=== PATIENT | male | born 1975 ===

== ENCOUNTER 2016-07-04 16:12 | Emergency (ER) | payer BC ==
--- NOTE | 2016-07-04 16:50 | EDM.PDOC ---
ED HPI Trauma - General Chief Complaint: Lower Extremity Injury/Pain Stated Complaint: PAIN/SWOLLEN RT FOOT Time Seen by Provider: 07/04/16 16:14 Source: Reports: Patient History Limitations: Reports: No limitations - History of Present Illness INITIAL COMMENTS - FREE TEXT/NARRATIVE: History of present illness: [] Patient peeled off some skin at the bottom of his foot 3 days ago and now it is swollen and tender and the redness is spreading up his leg. Patient denies having any fevers or chills and is a diabetic. Review of systems: As per history of present illness and below otherwise all systems reviewed and negative. Past medical history: As per history of present illness and as reviewed below otherwise noncontributory. Surgical history: As per history of present illness and as reviewed below otherwise noncontributory. Social history: No reported history of drug or alcohol abuse. Family history: As per history of present illness and as reviewed below otherwise noncontributory. Physical exam: General: Well developed, well nourished in NAD HEENT: Atraumatic, normocephalic, pupils reactive, negative for conjunctival pallor or scleral icterus, mucous membranes moist, throat clear, neck supple, nontender, trachea midline. Lungs: Clear to auscultation, breath sounds equal bilaterally, chest nontender. Heart: S1S2, regular, negative for clicks, rubs, or JVD. Abdomen: Soft, nondistended, nontender. Negative for masses or hepatosplenomegaly. Negative for costovertebral tenderness. Pelvis: Stable nontender. Genitourinary: Deferred. Rectal: Deferred. Extremities: Atraumatic, negative for cords or calf pain. Neurovascular unremarkable. Neuro: Awake, alert, oriented. Cranial nerves II through XII unremarkable. Cerebellum unremarkable. Motor and sensory unremarkable throughout. Exam nonfocal. Diagnostics: [] Labs, blood cultures, x-rays Therapeutics: [] IV fluids and try ceftriaxone 1 g given Impression: [] Cellulitis with lymphangitis of the right foot a diabetic. Plan: [] Patient is to start antibiotics by mouth, check sugars regularly. return to ER if symptoms worsen followup Dr. Jensen early next week Definitive disposition and diagnosis as appropriate pending reevaluation and review of above. Allergies/ADRs: Allergies No Known Allergies Allergy (Verified 07/04/16 16:44) Home Medications: Ambulatory Orders metFORMIN [Glucophage XR] 0 tab PO BID 06/29/14 [Confirmed 07/04/16] Empagliflozin/Linagliptin [Glyxambi 10 mg-5 mg Tablet] 0 tab PO DAILY 07/04/16 [ Confirmed 07/04/16] Sulfamethoxazole/Trimethoprim [Bactrim Ds Tablet] 1 each PO BID #20 tablet 07/04 Testosterone Cypionate 0 mg IM ASDIRECTED 07/04/16 [Confirmed 07/04/16] traMADol HCl [Tramadol HCl] 50 mg PO Q6H PRN #10 tablet 07/04/16 Social & Family History - Tobacco Use Smoking Status *Q: Former Smoker Years of Tobacco use: 12 Used Tobacco, but Quit: Yes Month Tobacco Last Used: 2 - Alcohol Use Days Per Week of Alcohol Use: 2 Number of Drinks Per Day: 1 Total Drinks Per Week: 2 - Recreational Drug Use Recreational Drug Use: Yes Drug Use in Last 12 Months: No Recreational Drug Type: Reports: Cocaine Review of Systems - Review of Systems Review Of Systems: See Below (See history of present illness) Trauma Exam - Physical Exam Exam: See Below (See history of present illness) Course - Vital Signs Last Recorded V/S: Last Vital Signs Temp 36.7 C 07/04/16 16:46 Pulse 95 07/04/16 16:46 Resp 18 07/04/16 16:46 BP 147/88 H 07/04/16 16:46 Pulse Ox 98 07/04/16 16:46 - Orders/Labs/Meds Orders: Active Orders 24 hr Category Date Time Status Foot 2V Rt [CR] Stat Exams 07/04/16 16:53 Taken CULTURE BLOOD [BC] Stat Lab 07/04/16 17:10 Received CULTURE BLOOD [BC] Stat Lab 07/04/16 17:14 Received Sodium Chloride 0.9% [Normal Saline] 1,000 ml Med 07/04/16 17:17 Active IV .Bolus Sodium Chloride 0.9% [Saline Flush] Med 07/04/16 16:52 Active 10 ml FLUSH ASDIRECTED PRN Sodium Chloride 0.9% [Saline Flush] Med 07/04/16 16:52 Active 2.5 ml FLUSH ASDIRECTED PRN Blood Culture x2 Reflex Set [OM.PC] Stat Oth 07/04/16 16:52 Ordered Peripheral IV Insertion Adult [OM.PC] Stat Oth 07/04/16 16:52 Ordered Medication Orders Sodium Chloride (Normal Saline) 1,000 mls @ 999 mls/hr IV .Bolus ONE Stop: 07/04/16 18:17 Last Admin: 07/04/16 17:38 Dose: 999 mls/hr Sodium Chloride (Saline Flush) 10 ml FLUSH ASDIRECTED PRN PRN Reason: Keep Vein Open Last Admin: 07/04/16 17:38 Dose: 10 ml Sodium Chloride (Saline Flush) 2.5 ml FLUSH ASDIRECTED PRN PRN Reason: Keep Vein Open Labs: Laboratory Tests 07/04/16 07/04/16 07/04/16 Range/Units 17:10 17:10 17:10 WBC 12.20 H (4.0-11.0) K/uL RBC 4.65 (4.50-5.90) M/uL Hgb 13.9 (13.0-17.0) g/dL Hct 41.1 (38.0-50.0) % MCV 88.4 (80.0-98.0) fL MCH 29.9 (27.0-32.0) pg MCHC 33.8 (31.0-37.0) g/dL RDW Std Deviation 40.6 (28.0-62.0) fl RDW Coeff of Sage 13 (11.0-15.0) % Plt Count 235 (150-400) K/uL MPV 10.60 (7.40-12.00) fL Neut % (Auto) 81.3 H (48.0-80.0) % Lymph % (Auto) 7.6 L (16.0-40.0) % [place] % (Auto) 10.7 (0.0-15.0) % Eos % (Auto) 0.2 (0.0-7.0) % Baso % (Auto) 0.2 (0.0-1.5) % Neut # 9.9 H (1.4-5.7) K/uL Lymph # 0.9 (0.6-2.4) K/uL [place] # 1.3 H (0.0-0.8) K/uL Eos # 0.0 (0.0-0.7) K/uL Baso # 0.0 (0.0-0.1) K/uL Nucleated RBC % 0.0 /100WBC Nucleated RBCs # 0 K/uL Lactate 1.4 (0.20-2.00) mmol/L Sodium 136 (136-146) mmol/L Potassium 4.1 (3.5-5.1) mmol/L Chloride 101 (98-110) mmol/L Carbon Dioxide 25 (21-31) mmol/L BUN 13 (6.0-23.0) mg/dL Creatinine 1.0 (0.6-1.5) mg/dL Est Cr Clr Drug Dosing 103.54 mL/min Estimated GFR (MDRD) > 60.0 ml/min Glucose 277 H (60-110) mg/dL Calcium 9.2 (8.8-10.8) mg/dL Total Bilirubin 0.4 (0.1-1.5) mg/dL AST 12 (5-40) IU/L ALT 14 (8-54) IU/L Alkaline Phosphatase 71 (40-150) Total Protein 7.1 (6.0-8.0) g/dL Albumin 3.8 (3.5-5.0) g/dL Globulin 3.3 (2.0-3.5) g/dL Albumin/Globulin Ratio 1.2 L (1.3-2.8) Meds: Medications Generic Name Dose Route Start Last Admin Trade Name Freq PRN Reason Stop Dose Admin Sodium Chloride 1,000 mls @ 999 mls/hr 07/04/16 17:17 07/04/16 17:38 Normal Saline IV 07/04/16 18:17 999 mls/hr .Bolus ONE Administration Sodium Chloride 10 ml 07/04/16 16:52 07/04/16 17:38 Saline Flush FLUSH 10 ml ASDIRECTED PRN Administration Keep Vein Open Sodium Chloride 2.5 ml 07/04/16 16:52 Saline Flush FLUSH ASDIRECTED PRN Keep Vein Open Discontinued Medications Generic Name Dose Route Start Last Admin Trade Name Freq PRN Reason Stop Dose Admin Ceftriaxone Sodium/Dextrose 1 50 mls @ 100 mls/hr 07/04/16 17:17 07/04/16 17: 36 gm/ Premix IV 07/04/16 17:46 100 mls/hr ONETIME ONE Administration Morphine Sulfate 4 mg 07/04/16 17:17 07/04/16 17:30 Morphine IVPUSH 07/04/16 17:18 4 mg ONETIME ONE Administration Departure - Departure Time of Disposition: 18:10 Disposition: Home, Self-Care 01 Condition: good Clinical Impression: History of cellulitis of skin with lymphangitis Diabetic foot ulcer Qualifiers: Diabetes mellitus type: other specified (including SANA) Laterality: right Qualified Code(s): E13.621 - Other specified diabetes mellitus with foot ulcer Prescriptions: Sulfamethoxazole/Trimethoprim [Bactrim Ds Tablet] 1 each PO BID #20 tablet traMADol HCl [Tramadol HCl] 50 mg PO Q6H PRN #10 tablet PRN Reason: Pain Referrals: Rolly Tillman MD [Primary Care Provider] - Forms: ED Department Discharge Additional Instructions: The following information is given to patients seen in the emergency department who are being discharged to home. This information is to outline your options for follow-up care. We provide all patients seen in our emergency department with a follow-up referral. The need for follow-up, as well as the timing and circumstances, are variable depending upon the specifics of your emergency department visit. If you don't have a primary care physician on staff, we will provide you with a referral. We always advise you to contact your personal physician following an emergency department visit to inform them of the circumstance of the visit and for follow-up with them and/or the need for any referrals to a consulting specialist. The emergency department will also refer you to a specialist when appropriate. This referral assures that you have the opportunity for follow-up care with a specialist. All of these measure are taken in an effort to provide you with optimal care, which includes your follow-up. Under all circumstances we always encourage you to contact your private physician who remains a resource for coordinating your care. When calling for follow-up care, please make the office aware that this follow-up is from your recent emergency room visit. If for any reason you are refused follow-up, please contact the [facility] Emergency Department at and asked to speak to the emergency department charge nurse. Bactrim DS as directed, warm soaks, followup Dr. Tillman next week [facility] [address] [place] [id number] - My Orders Last 24 Hours: My Active Orders 07/04/16 16:52 Sodium Chloride 0.9% [Saline Flush] 10 ml FLUSH ASDIRECTED PRN Sodium Chloride 0.9% [Saline Flush] 2.5 ml FLUSH ASDIRECTED PRN Blood Culture x2 Reflex Set [OM.PC] Stat Peripheral IV Insertion Adult [OM.PC] Stat 07/04/16 16:53 Foot 2V Rt [CR] Stat 07/04/16 17:10 CULTURE BLOOD [BC] Stat 07/04/16 17:14 CULTURE BLOOD [BC] Stat 07/04/16 17:17 Sodium Chloride 0.9% [Normal Saline] 1,000 ml IV .Bolus - Assessment/Plan Last 24 Hours: My Active Orders 07/04/16 16:52 Sodium Chloride 0.9% [Saline Flush] 10 ml FLUSH ASDIRECTED PRN Sodium Chloride 0.9% [Saline Flush] 2.5 ml FLUSH ASDIRECTED PRN Blood Culture x2 Reflex Set [OM.PC] Stat Peripheral IV Insertion Adult [OM.PC] Stat 07/04/16 16:53 Foot 2V Rt [CR] Stat 07/04/16 17:10 CULTURE BLOOD [BC] Stat 07/04/16 17:14 CULTURE BLOOD [BC] Stat 07/04/16 17:17 Sodium Chloride 0.9% [Normal Saline] 1,000 ml IV .Bolus
[2016-07-04] MEDS ORDERED: Sodium Chloride 0.9% 10 ML Syringe FLUSH PRN (16:52)
[2016-07-04] MEDS ORDERED: Sodium Chloride 0.9% 2.5 ML Syringe FLUSH PRN (16:52)
[2016-07-04] MEDS ORDERED: Morphine 2 MG/ML Syringe IVPUSH ONE (17:17)
[2016-07-04] MEDS ORDERED: Sodium Chloride 0.9% 1,000 ML IV ONE (17:17)
[2016-07-04] MEDS ORDERED: cefTRIAXone 1 GM in Premix Bag 1 BAG IV ONE (17:17)
[2016-07-04 17:43] LABS: CHLORIDE,CL 101 mmol/L (98-110); SODIUM,NA 136 mmol/L (136-146)
[2016-07-04 18:48] VITALS: BP 144/85
--- NOTE | 2016-07-07 19:05 | CR ---
EXAM DATE: 07/04/16 PATIENT'S AGE: 41 Patient: ERIN SOLO Facility: [place], [place] Site . Site : [id number] Study: XRay Extremity Right FOOT [id number]/10/2017 5:25:06 PM Ordering Physician: Micha Hubbard Final Report: Indication: Pain. Possible infection. Technique: Right foot two views. Comparison: None. Findings: No acute fracture or dislocation. No lytic or sclerotic osseous lesion. No additional osseous abnormality. Vascular calcifications. Soft tissues elsewhere as imaged are unremarkable. Impression: No radiographic evidence of osteomyelitis. Dictated by Moe Ryan MD @ 07/04/2016 6:20:03 PM Dictated by: Moe Ryan MD @ 07/04/2016 18:20:09 (Electronic Signature) Report Signed by Proxy and Original Signed Document filed in the Medical Record. MTDLee
== END 2016-07-04 18:46 | disposition home or self-care (01) ==
LOC: MW.ED 16:12
DX: E11.621 Type 2 diabetes mellitus with foot ulcer (principal); L97.519 Non-pressure chronic ulcer of other part of right foot with unspecified severity; L03.115 Cellulitis of right lower limb; Z79.899 Other long term (current) drug therapy; Z87.891 Personal history of nicotine dependence
CPT/HCPCS: 36415; 73620; 80053; 83605; 85025; 87040; 96361; 96365; 96375; 99283; J0696; J2270; J7040; 99284

== ENCOUNTER → 2016-07-16 | Outpatient (CLI) | payer BC ==
[2016-07-16 12:07] LABS: CHLORIDE,CL 101 mmol/L (98-110); SODIUM,NA 136 mmol/L (136-146)
== END ==
LOC: MW.CHIM 11:10
PROVIDERS: ATTEND Internal Medicine
DX: Z12.5 Encounter for screening for malignant neoplasm of prostate (principal); E78.5 Hyperlipidemia, unspecified; E78.00 Pure hypercholesterolemia, unspecified; E11.9 Type 2 diabetes mellitus without complications
CPT/HCPCS: 36415; 80053; 80061; 83036; 84439; 84443; 85025

== ENCOUNTER → 2016-08-28 | Outpatient (CLI) | payer BC | END | disposition home or self-care (01) | LOC: MW.CHUR 07:34 | PROVIDERS: ATTEND Urology | DX: R68.82 Decreased libido (principal); N52.9 Male erectile dysfunction, unspecified; E29.1 Testicular hypofunction; E11.9 Type 2 diabetes mellitus without complications | CPT/HCPCS: 36415; 83036; 84402; 84403 ==

== ENCOUNTER 2017-02-27 12:04 | Emergency (ER) | payer BC ==
--- NOTE | 2017-02-27 12:32 | EDM.PDOC ---
ED HPI GENERAL MEDICAL PROBLEM - General Chief Complaint: Upper Extremity Injury/Pain Stated Complaint: RIGHT MIDDLE FINGER SMASHED Time Seen by Provider: 02/27/17 12:28 Source of Information: Reports: Patient History Limitations: Reports: No Limitations - History of Present Illness INITIAL COMMENTS - FREE TEXT/NARRATIVE: HISTORY AND PHYSICAL: History of present illness: [Patient comes to the emergency room for evaluation of right middle finger redness, swelling, bruising and fracture. Right middle and ring fingers were crushed on a metal beam on a sunshine while patient was working in the [employer] field on February 24, 2017. He sought medical care yesterday at which time an x-ray was completed, Augmentin was prescribed and a tetanus shot was updated. Patient was notified this morning that he has fractures to the talus of the distal middle and ring fingers. His pain has not improved with Tylenol and ibuprofen. He complains of a throbbing sensation in his finger which improves with holding his finger above the level of his heart. Took his first dose of Augmentin 875 mg this morning when he picked up his prescription. He is unable to see the hand specialist, Dr. Shereen Mendes until mid next week.] Review of systems: As per history of present illness and below otherwise all systems reviewed and negative. Past medical history: As per history of present illness and as reviewed below otherwise noncontributory. Surgical history: As per history of present illness and as reviewed below otherwise noncontributory. Social history: No reported history of drug or alcohol abuse. Family history: As per history of present illness and as reviewed below otherwise noncontributory. Physical exam: HEENT: Atraumatic, normocephalic. Lungs: Clear to auscultation, breath sounds equal bilaterally. Heart: S1S2, regular rate and rhythm. Extremities: R middle finger is swollen, with erythema extending proximally from DIP. Significant ecchymosis to DIP joint and distal aspect of middle finger. Exquisitely tender with palpation and movement. Neurovascular unremarkable. Neuro: Awake, alert, oriented. Motor and sensory unremarkable throughout. Exam nonfocal. Diagnostics: [CBC, CMP] Therapeutics: [NS 1 liter] Impression: [crush injury R middle finger multiple nondisplaced fractures to distal talus of R middle finger. ] Plan: [Consult to Dr. Shereen Mendes for evaluation in the ER. Nail is removed and wound is dressed by Dr. Mendes. She states that the nailbed is clean and does not recommend any IV antibiotics at this time. Continue Augmentin as previously prescribed. Rx written for [place] 5/325mg (#40) si po q 6 hours prn pain 0 RF 's as per discussion with Dr. Mendes. Follow up with Dr. Mendes in clinic next week as discussed. All questions are answered and concerns are addressed. Pt verbalizes understanding of today's discussion. ] Definitive disposition and diagnosis as appropriate pending reevaluation and review of above. Right 3-Middle finger Pain Score (Numeric/FACES): 10 - Related Data Allergies Allergy/AdvReac Type Severity Reaction Status Date / Time No Known Allergies Allergy Verified 02/27/17 12:33 Home Meds: Home Meds metFORMIN [Glucophage XR] 500 mg PO BID 06/29/14 [History] Empagliflozin/Linagliptin [Glyxambi 10 mg-5 mg Tablet] 1 tab PO DAILY 07/04/16 [ History] Testosterone Cypionate 100 mg IM ASDIRECTED 07/04/16 [History] Fenofibrate 02/27/17 [History] Past Medical History Cardiovascular History: Reports: High Cholesterol Endocrine/Metabolic History: Reports: Diabetes, Type II - Past Surgical History Musculoskeletal Surgical History: Reports: Other (See Below) Social & Family History - Family History Family Medical History: Noncontributory - Tobacco Use Smoking Status *Q: Former Smoker Years of Tobacco use: 12 Used Tobacco, but Quit: Yes Month Tobacco Last Used: 2 - Alcohol Use Days Per Week of Alcohol Use: 2 Number of Drinks Per Day: 1 Total Drinks Per Week: 2 - Recreational Drug Use Recreational Drug Use: Yes Drug Use in Last 12 Months: No Recreational Drug Type: Reports: Cocaine Review of Systems - Review of Systems Review Of Systems: ROS reveals no pertinent complaints other than HPI. ED EXAM, GENERAL - Physical Exam Exam: See Below Course - Vital Signs Last Recorded V/S: Last Vital Signs Temp 98.6 F 02/27/17 14:00 Pulse 78 02/27/17 14:00 Resp 16 02/27/17 14:00 BP 132/68 02/27/17 14:00 Pulse Ox 98 02/27/17 14:00 - Orders/Labs/Meds Orders: Active Orders 24 hr Category Date Time Status Notify Provider Consults [RC] ASDIRECTED Care 02/27/17 13:35 Active Consult to Physician [CONS] Stat Cons 02/27/17 13:34 Active Labs: Laboratory Tests 02/27/17 02/27/17 Range/Units 13:05 13:05 WBC 9.42 (4.0-11.0) K/uL RBC 5.66 (4.50-5.90) M/uL Hgb 16.5 (13.0-17.0) g/dL Hct 48.2 (38.0-50.0) % MCV 85.2 (80.0-98.0) fL MCH 29.2 (27.0-32.0) pg MCHC 34.2 (31.0-37.0) g/dL RDW Std Deviation 41.6 (28.0-62.0) fl RDW Coeff of Sage 14 (11.0-15.0) % Plt Count 219 (150-400) K/uL MPV 10.90 (7.40-12.00) fL Neut % (Auto) 72.6 (48.0-80.0) % Lymph % (Auto) 15.2 L (16.0-40.0) % [place] % (Auto) 11.3 (0.0-15.0) % Eos % (Auto) 0.7 (0.0-7.0) % Baso % (Auto) 0.2 (0.0-1.5) % Neut # (Auto) 6.8 H (1.4-5.7) K/uL Lymph # (Auto) 1.4 (0.6-2.4) K/uL [place] # (Auto) 1.1 H (0.0-0.8) K/uL Eos # (Auto) 0.1 (0.0-0.7) K/uL Baso # (Auto) 0.0 (0.0-0.1) K/uL Nucleated RBC % 0.0 /100WBC Nucleated RBCs # 0 K/uL Sodium 134 L (136-146) mmol/L Potassium 4.7 (3.5-5.1) mmol/L Chloride 98 (98-110) mmol/L Carbon Dioxide 25 (21-31) mmol/L BUN 15 (6.0-23.0) mg/dL Creatinine 1.0 (0.6-1.5) mg/dL Est Cr Clr Drug Dosing 102.49 mL/min Estimated GFR (MDRD) > 60.0 ml/min Glucose 267 H (60-110) mg/dL Calcium 9.7 (8.8-10.8) mg/dL Total Bilirubin 0.5 (0.1-1.5) mg/dL AST 15 (5-40) IU/L ALT 16 (8-54) IU/L Alkaline Phosphatase 94 (40-150) Total Protein 7.3 (6.0-8.0) g/dL Albumin 4.0 (3.5-5.0) g/dL Globulin 3.3 (2.0-3.5) g/dL Albumin/Globulin Ratio 1.2 L (1.3-2.8) Meds: Medications Discontinued Medications Generic Name Dose Route Start Last Admin Trade Name Freq PRN Reason Stop Dose Admin Sodium Chloride 1,000 mls @ 999 mls/hr 02/27/17 12:54 02/27/17 13:16 Normal Saline IV 02/27/17 13:54 999 mls/hr STAT ONE Administration Ceftriaxone Sodium 1,000 mg/ 50 mls @ 200 mls/hr 02/27/17 13:35 02/27/17 13: 48 Sodium Chloride IV 02/27/17 13:49 Not Given ONETIME ONE Ceftriaxone Sodium/Dextrose 1 50 mls @ 100 mls/hr 02/27/17 13:48 gm/ Premix IV 02/27/17 14:17 ONETIME ONE Ceftriaxone Sodium/Dextrose Confirm 02/27/17 13:54 02/27/17 14:17 Rocephin In Dextrose,Iso-Osm 1 Gm/50 Ml Administered 02/27/17 13:55 Not Given Dose 50 mls @ as directed .ROUTE .STK-MED ONE Lidocaine HCl 20 ml 02/27/17 13:10 02/27/17 13:16 Xylocaine 1% INJECT 02/27/17 13:11 20 ml ONETIME ONE Administration Lidocaine HCl Confirm 02/27/17 13:09 02/27/17 13:42 Xylocaine 1% Administered 02/27/17 13:10 Not Given Dose 20 ml .ROUTE .STK-MED ONE Departure - Departure Time of Disposition: 14:03 Disposition: Home, Self-Care 01 Condition: Good Clinical Impression: Crush injury, Closed fracture of tuft of distal phalanx of finger - Discharge Information Instructions: Crush Injury, Fingers or Toes, [id number] Referrals: Rolly Tillman MD [Primary Care Provider] - Forms: ED Department Discharge Additional Instructions: The following information is given to patients seen in the emergency department who are being discharged to home. This information is to outline your options for follow-up care. We provide all patients seen in our emergency department with a follow-up referral. The need for follow-up, as well as the timing and circumstances, are variable depending upon the specifics of your emergency department visit. If you don't have a primary care physician on staff, we will provide you with a referral. We always advise you to contact your personal physician following an emergency department visit to inform them of the circumstance of the visit and for follow-up with them and/or the need for any referrals to a consulting specialist. The emergency department will also refer you to a specialist when appropriate. This referral assures that you have the opportunity for follow-up care with a specialist. All of these measure are taken in an effort to provide you with optimal care, which includes your follow-up. Under all circumstances we always encourage you to contact your private physician who remains a resource for coordinating your care. When calling for follow-up care, please make the office aware that this follow-up is from your recent emergency room visit. If for any reason you are refused follow-up, please contact the [facility] emergency department at and asked to speak to the emergency department charge nurse. [facility] Specialty care- [facility] [address] [place] [address], [address] [place] [address] Follow-up as you discussed with Dr. Donovan at the clinic listed above. Continue antibiotics. Take pain medication as prescribed. Return to ER as needed as discussed. - My Orders Last 24 Hours: My Active Orders 02/27/17 13:34 Consult to Physician [CONS] Stat 02/27/17 13:35 Notify Provider Consults [RC] ASDIRECTED - Assessment/Plan Last 24 Hours: My Active Orders 02/27/17 13:34 Consult to Physician [CONS] Stat 02/27/17 13:35 Notify Provider Consults [RC] ASDIRECTED
[2017-02-27] MEDS ORDERED: Sodium Chloride 0.9% 1,000 ML IV ONE (12:54)
[2017-02-27] MEDS ORDERED: Lidocaine 1% 20 ML MDV ONE (13:09)
[2017-02-27] MEDS: Lidocaine 1% 20 ML MDV INJECT ONE ×2 (13:15→13:16)
[2017-02-27] MEDS ORDERED: cefTRIAXone 1,000 MG in Sodium Chloride 0.9% 50 ML IV ONE (13:35)
[2017-02-27 13:40] LABS: CHLORIDE,CL 98 mmol/L (98-110); SODIUM,NA 134 mmol/L (136-146)
[2017-02-27] MEDS ORDERED: cefTRIAXone 1 GM in Premix Bag 1 BAG IV ONE (13:48)
[2017-02-27 14:29] VITALS: BP 132/68
--- NOTE | 2017-03-05 11:36 | PCM.OPNOTE ---
- General Post-Op/Procedure Note Date of Surgery/Procedure: 02/27/17 Operative Procedure(s): right middle finger nailbed repair Pre Op Diagnosis: right middle finger nailbed injury with tuft fracture Post-Op Diagnosis: Same Anesthesia Technique: Local Primary Surgeon: Emily Mendes Complications: None Condition: Fair
== END 2017-02-27 14:18 | disposition home or self-care (01) ==
LOC: MW.ED 12:04
DX: S67.192A Crushing injury of right middle finger, initial encounter (principal); S62.662A Nondisplaced fracture of distal phalanx of right middle finger, initial encounter for closed fracture; E11.9 Type 2 diabetes mellitus without complications; Z79.899 Other long term (current) drug therapy; Z79.84 Long term (current) use of oral hypoglycemic drugs; Z87.891 Personal history of nicotine dependence; W23.1XXA Caught, crushed, jammed, or pinched between stationary objects, initial encounter
CPT/HCPCS: 11730; 80053; 85025; 96360; 99284; J7040

== ENCOUNTER 2019-08-02 01:11 | Emergency (ER) | payer BC ==
--- NOTE | 2019-08-02 01:27 | EDM.PDOC ---
ED [facility] GENERAL MEDICAL PROBLEM - General Chief Complaint: Chest Pain Stated Complaint: CHEST PAIN Time Seen by Provider: 08/02/19 01:27 Source of Information: Reports: Patient History Limitations: Reports: Intoxication - History of Present Illness INITIAL COMMENTS - FREE TEXT/NARRATIVE: Patient 44 male presenting with complaint of chest pain. Patient has a past medical history of diabetes as well as alcohol abuse. Chest pain has been ongoing for the past 2 to 3 weeks. Patient states the chest pain worsened tonight. Patient reports drinking daily and struggling with anxiety and depression. Patient states that he drinks to help with the pain go away. Patient reports one episode of vomiting. Patient denies any associated diaphoresis, lower extremity swelling. Patient states he sometimes with this pain when he has anxiety. Patient reports drinking alcohol prior to arrival. Pmhx: Diabetes Pshx: None Family Hx: noncontributory Smoking history? no Etoh use? Daily Drug use? none In addition to that documented in the HPI above, the additional ROS was obtained : Constitutional: Denies fevers or chills Eyes: Denies vision changes ENMT: Denies sore throat CV: Per HPI Resp: Denies SOB GI: Denies vomiting or diarrhea : Denies painful urination MSK: Denies recent trauma Skin: Denies new rashes Neuro: Denies new numbness or tingling or weakness Endocrine: Denies unexpected weight loss Heme: Denies bleeding disorders Psych: Denies HI and SI I have reviewed the triage vital signs Const: Tearful and slurring of speech Eyes: PERRL, no conjunctival injection HENT: NCAT, Neck supple without meningismus CV: RRR, Warm, well-perfused extremities RESP: CTAB, Unlabored respiratory effort GI: soft, non-tender, non-distended, no masses MSK: No gross deformities appreciated Skin: Warm, dry. No rashes Neuro: Alert, sports official II-XII grossly intact. Sensation and motor function of extremities grossly intact. Psych: Appropriate mood and affect Assessment and plan: Patient is 44 male presenting with chest pain. Patient hemodynamically stable throughout emergency department stay. Patient's initial EKG demonstrated some ST elevation in lead V2 and well EKG computer reading demonstrated acute CT my interpretation is that this is not consistent with a STEMI. Chest x-ray and labs were performed did not demonstrate any acute abnormalities. Patient has some elevation of his creatinine which is noted on prior labs as well. Patient' s serial troponins were within normal limits. Patient serial EKGs did not demonstrate any acute changes. Patient's pain improved after pain medication. After period of observation in the emergency department, patient is now clinically sober despite elevated alcohol level. Patient is not demonstrating any evidence of alcohol withdrawal. Chest pain may be related to gastritis/gastric reflux disease versus anxiety versus musculoskeletal pain. Patient has a heart score of 3. Patient has no PE risk factors. Patient be discharged and instructed to follow-up with primary care physician. All questions were addressed and answered. Patient given return precautions. Patient agrees with plan. chest pain generalized Pain Score (Numeric/FACES): 9 - Related Data Allergies Allergy/AdvReac Type Severity Reaction Status Date / Time No Known Allergies Allergy Verified 08/02/19 01:25 Home Meds: Home Meds metFORMIN [Glucophage XR] 500 mg PO BID 06/29/14 [History] Empagliflozin/Linagliptin [Glyxambi 10 mg-5 mg Tablet] 1 tab PO DAILY 07/04/16 [ History] Testosterone Cypionate 100 mg IM ASDIRECTED 07/04/16 [History] Fenofibrate 02/27/17 [History] Past Medical History Cardiovascular History: Reports: High Cholesterol Endocrine/Metabolic History: Reports: Diabetes, Type II - Infectious Disease History Infectious Disease History: Reports: Chicken Pox - Past Surgical History Musculoskeletal Surgical History: Reports: Other (See Below) Social & Family History - Family History Family Medical History: Noncontributory ED ROS GENERAL - Review of Systems Review Of Systems: See Below ED EXAM, GENERAL - Physical Exam Exam: See Below Course - Vital Signs Last Recorded V/S: Last Vital Signs Temp 36.1 C 08/02/19 01:19 Pulse 89 08/02/19 04:39 Resp 20 08/02/19 04:39 BP 108/50 L 08/02/19 04:39 Pulse Ox 95 08/02/19 04:39 - Orders/Labs/Meds Orders: Active Orders 24 hr Category Date Time Status Blood Glucose Check, Bedside [RC] ONETIME Care 08/02/19 01:27 Active EKG Documentation Completion [RC] STAT Care 08/02/19 01:25 Active EKG Documentation Completion [RC] STAT Care 08/02/19 01:32 Active EKG Documentation Completion [RC] STAT Care 08/02/19 03:59 Active MVI, Adult with Vitamin K [Infuvite Adult] 10 ml Med 08/02/19 03:03 Active Thiamine [Vitamin B-1] 200 mg Chromium/Copper/Marc/Selen/Zn [Multitrace-5 Concentrate ] 1 ml Sodium Chloride 0.9% [Normal Saline] 1,000 ml IV ASDIRECTED Sodium Chloride 0.9% [Normal Saline] 1,000 ml Med 08/02/19 05:11 Active IV .Bolus Medication Orders Multivitamins/Minerals 10 ml/Thiamine HCl 200 mg/ Chromium/Copper/Manganese/ Seleni/Zn 1 ml/ Sodium Chloride 1,013 mls @ 1,000 mls/hr IV ASDIRECTED ALEKS Last Admin: 08/02/19 03:00 Dose: 1,000 mls/hr Sodium Chloride (Normal Saline) 1,000 mls @ 1,000 mls/hr IV .Bolus ONE Stop: 08/02/19 06:10 Last Admin: 08/02/19 05:17 Dose: 1,000 mls/hr Labs: Laboratory Tests 08/02/19 08/02/19 08/02/19 Range/Units 01:25 01:25 01:25 WBC 5.99 (4.0-11.0) K/uL RBC 5.55 (4.50-5.90) M/uL Hgb 16.2 (13.0-17.0) g/dL Hct 45.1 (38.0-50.0) % MCV 81.3 (80.0-98.0) fL MCH 29.2 (27.0-32.0) pg MCHC 35.9 (31.0-37.0) g/dL RDW Std Deviation 39.4 (28.0-62.0) fl RDW Coeff of Sage 14 (11.0-15.0) % Plt Count 286 (150-400) K/uL MPV 9.10 (7.40-12.00) fL Neut % (Auto) 44.9 L (48.0-80.0) % Lymph % (Auto) 43.6 H (16.0-40.0) % Bladen % (Auto) 10.9 (0.0-15.0) % Eos % (Auto) 0.3 (0.0-7.0) % Baso % (Auto) 0.3 (0.0-1.5) % Neut # (Auto) 2.7 (1.4-5.7) K/uL Lymph # (Auto) 2.6 H (0.6-2.4) K/uL Bladen # (Auto) 0.7 (0.0-0.8) K/uL Eos # (Auto) 0.0 (0.0-0.7) K/uL Baso # (Auto) 0.0 (0.0-0.1) K/uL INR 1.00 Sodium 128 L (136-148) mmol/L Potassium 3.7 (3.5-5.1) mmol/L Chloride 89 L (98-107) mmol/L Carbon Dioxide 20.2 L (21.0-32.0) mmol/L BUN 16 (7.0-18.0) mg/dL Creatinine 1.4 H (0.8-1.3) mg/dL Est Cr Clr Drug Dosing TNP Estimated GFR (MDRD) 55.1 ml/min Glucose 84 (74-106) mg/dL Calcium 8.8 (8.5-10.1) mg/dL Total Bilirubin 0.6 (0.2-1.0) mg/dL AST 63 H (15-37) IU/L ALT 54 (14-63) IU/L Alkaline Phosphatase 51 (46-116) U/L Troponin I < 0.050 (0.000-0.056) ng/mL B-Natriuretic Peptide (<100) PG/ML Total Protein 7.0 (6.4-8.2) g/dL Albumin 3.6 (3.4-5.0) g/dL Globulin 3.4 (2.6-4.0) g/dL Albumin/Globulin Ratio 1.1 (0.9-1.6) Lipase (73-393) U/L Ethyl Alcohol mg/dL 08/02/19 08/02/19 08/02/19 Range/Units 01:25 01:25 04:05 WBC (4.0-11.0) K/uL RBC (4.50-5.90) M/uL Hgb (13.0-17.0) g/dL Hct (38.0-50.0) % MCV (80.0-98.0) fL MCH (27.0-32.0) pg MCHC (31.0-37.0) g/dL RDW Std Deviation (28.0-62.0) fl RDW Coeff of Sage (11.0-15.0) % Plt Count (150-400) K/uL MPV (7.40-12.00) fL Neut % (Auto) (48.0-80.0) % Lymph % (Auto) (16.0-40.0) % Bladen % (Auto) (0.0-15.0) % Eos % (Auto) (0.0-7.0) % Baso % (Auto) (0.0-1.5) % Neut # (Auto) (1.4-5.7) K/uL Lymph # (Auto) (0.6-2.4) K/uL Bladen # (Auto) (0.0-0.8) K/uL Eos # (Auto) (0.0-0.7) K/uL Baso # (Auto) (0.0-0.1) K/uL INR Sodium (136-148) mmol/L Potassium (3.5-5.1) mmol/L Chloride (98-107) mmol/L Carbon Dioxide (21.0-32.0) mmol/L BUN (7.0-18.0) mg/dL Creatinine (0.8-1.3) mg/dL Est Cr Clr Drug Dosing Estimated GFR (MDRD) ml/min Glucose (74-106) mg/dL Calcium (8.5-10.1) mg/dL Total Bilirubin (0.2-1.0) mg/dL AST (15-37) IU/L ALT (14-63) IU/L Alkaline Phosphatase (46-116) U/L Troponin I < 0.050 (0.000-0.056) ng/mL B-Natriuretic Peptide 13 (<100) PG/ML Total Protein (6.4-8.2) g/dL Albumin (3.4-5.0) g/dL Globulin (2.6-4.0) g/dL Albumin/Globulin Ratio (0.9-1.6) Lipase (73-393) U/L Ethyl Alcohol 363 mg/dL 08/02/19 Range/Units 04:05 WBC (4.0-11.0) K/uL RBC (4.50-5.90) M/uL Hgb (13.0-17.0) g/dL Hct (38.0-50.0) % MCV (80.0-98.0) fL MCH (27.0-32.0) pg MCHC (31.0-37.0) g/dL RDW Std Deviation (28.0-62.0) fl RDW Coeff of Sage (11.0-15.0) % Plt Count (150-400) K/uL MPV (7.40-12.00) fL Neut % (Auto) (48.0-80.0) % Lymph % (Auto) (16.0-40.0) % Bladen % (Auto) (0.0-15.0) % Eos % (Auto) (0.0-7.0) % Baso % (Auto) (0.0-1.5) % Neut # (Auto) (1.4-5.7) K/uL Lymph # (Auto) (0.6-2.4) K/uL Bladen # (Auto) (0.0-0.8) K/uL Eos # (Auto) (0.0-0.7) K/uL Baso # (Auto) (0.0-0.1) K/uL INR Sodium (136-148) mmol/L Potassium (3.5-5.1) mmol/L Chloride (98-107) mmol/L Carbon Dioxide (21.0-32.0) mmol/L BUN (7.0-18.0) mg/dL Creatinine (0.8-1.3) mg/dL Est Cr Clr Drug Dosing Estimated GFR (MDRD) ml/min Glucose (74-106) mg/dL Calcium (8.5-10.1) mg/dL Total Bilirubin (0.2-1.0) mg/dL AST (15-37) IU/L ALT (14-63) IU/L Alkaline Phosphatase (46-116) U/L Troponin I (0.000-0.056) ng/mL B-Natriuretic Peptide (<100) PG/ML Total Protein (6.4-8.2) g/dL Albumin (3.4-5.0) g/dL Globulin (2.6-4.0) g/dL Albumin/Globulin Ratio (0.9-1.6) Lipase 255 (73-393) U/L Ethyl Alcohol mg/dL Meds: Medications Generic Name Dose Route Start Last Admin Trade Name Freq PRN Reason Stop Dose Admin Multivitamins/Minerals 10 ml/ 1,013 mls @ 1,000 mls/hr 08/02/19 03:03 03:00 Thiamine HCl 200 mg/ Chromium/ IV 1,000 mls/hr Copper/Manganese/Seleni/Zn 1 ASDIRECTED ALEKS Administration ml/ Sodium Chloride Sodium Chloride 1,000 mls @ 1,000 mls/hr 08/02/19 05:11 08/02/19 05:17 Normal Saline IV 08/02/19 06:10 1,000 mls/hr .Bolus ONE Administration Discontinued Medications Generic Name Dose Route Start Last Admin Trade Name Jeffq PRN Reason Stop Dose Admin Al Hydroxide/Mg Hydroxide 30 ml 08/02/19 01:45 08/02/19 01:50 Mag-Al Plus PO 08/02/19 01:46 30 ml ONETIME ONE Administration Aspirin 324 mg 08/02/19 01:45 Aspirin PO 08/02/19 01:46 ONETIME ONE Aspirin 162 mg 08/02/19 01:48 08/02/19 01:51 Aspirin PO 08/02/19 01:49 162 mg ONETIME ONE Administration Famotidine 20 mg 08/02/19 02:32 08/02/19 02:39 Pepcid IVPUSH 08/02/19 02:33 20 mg ONETIME ONE Administration Famotidine Confirm 08/02/19 02:33 Pepcid Administered 08/02/19 02:34 Dose 20 mg .ROUTE .STK-MED ONE Multivitamins/Minerals 10 ml/ 1,013 mls @ 1,000 mls/hr 08/02/19 02:30 Thiamine HCl 200 mg/ Chromium/ IV Copper/Manganese/Seleni/Zn 1 ASDIRECTED ALEKS ml/ Dextrose/Lactated Ringer's Ketorolac Tromethamine 15 mg 08/02/19 04:34 08/02/19 04:38 Toradol IVPUSH 08/02/19 04:35 15 mg ONETIME ONE Administration Ketorolac Tromethamine Confirm 04/07/20 04:35 Toradol Administered 08/02/19 04:36 Dose 30 mg .ROUTE .STK-MED ONE Lidocaine HCl 15 ml 08/02/19 02:32 08/02/19 02:39 Xylocaine 2% Viscous PO 08/02/19 02:33 15 ml ONETIME ONE Administration Lidocaine HCl Confirm 08/02/19 02:33 Xylocaine 2% Viscous Administered 08/02/19 02:34 Dose 15 ml .ROUTE .STK-MED ONE Morphine Sulfate 4 mg 08/02/19 05:09 08/02/19 05:14 Morphine IVPUSH 08/02/19 05:10 4 mg ONETIME ONE Administration Ondansetron HCl 4 mg 08/02/19 01:45 08/02/19 01:50 Zofran IVPUSH 08/02/19 01:46 4 mg ONETIME ONE Administration Departure - Departure Time of Disposition: 05:31 Disposition: Home, Self-Care 01 Clinical Impression: Atypical chest pain Instructions: Nonspecific Chest Pain, Adult Referrals: Rolly Tillman MD [Primary Care Provider] - Forms: ED Department Discharge Additional Instructions: The following information is given to patients seen in the emergency department who are being discharged to home. This information is to outline your options for follow-up care. We provide all patients seen in our emergency department with a follow-up referral. The need for follow-up, as well as the timing and circumstances, are variable depending upon the specifics of your emergency department visit. If you don't have a primary care physician on staff, we will provide you with a referral. We always advise you to contact your personal physician following an emergency department visit to inform them of the circumstance of the visit and for follow-up with them and/or the need for any referrals to a consulting specialist. The emergency department will also refer you to a specialist when appropriate. This referral assures that you have the opportunity for follow-up care with a specialist. All of these measure are taken in an effort to provide you with optimal care, which includes your follow-up. Under all circumstances we always encourage you to contact your private physician who remains a resource for coordinating your care. When calling for follow-up care, please make the office aware that this follow-up is from your recent emergency room visit. If for any reason you are refused follow-up, please contact the [facility] Emergency Department at and asked to speak to the emergency department charge nurse. Sepsis Event Note - Evaluation Sepsis Screening Result: No Definite Risk - Focused Exam Vital Signs: Vital Signs Temp Pulse Resp BP Pulse Ox 08/02/19 04:39 89 20 108/50 L 95 08/02/19 01:19 36.1 C 84 22 H 161/99 H 97 Date Exam was Performed: 08/02/19 Time Exam was Performed: 05:36 - My Orders Last 24 Hours: My Active Orders 08/02/19 01:25 EKG Documentation Completion [RC] STAT 08/02/19 01:27 Blood Glucose Check, Bedside [RC] ONETIME 08/02/19 01:32 EKG Documentation Completion [RC] STAT 08/02/19 03:03 MVI, Adult with Vitamin K [Infuvite Adult] 10 ml Thiamine [Vitamin B-1] 200 mg Chromium/Copper/Marc/Selen/Zn [Multitrace-5 Concentrate] 1 ml Sodium Chloride 0.9% [Normal Saline] 1,000 ml IV ASDIRECTED 08/02/19 03:59 EKG Documentation Completion [RC] STAT 08/02/19 05:11 Sodium Chloride 0.9% [Normal Saline] 1,000 ml IV .Bolus - Assessment/Plan Last 24 Hours: My Active Orders 08/02/19 01:25 EKG Documentation Completion [RC] STAT 08/02/19 01:27 Blood Glucose Check, Bedside [RC] ONETIME 08/02/19 01:32 EKG Documentation Completion [RC] STAT 08/02/19 03:03 MVI, Adult with Vitamin K [Infuvite Adult] 10 ml Thiamine [Vitamin B-1] 200 mg Chromium/Copper/Marc/Selen/Zn [Multitrace-5 Concentrate] 1 ml Sodium Chloride 0.9% [Normal Saline] 1,000 ml IV ASDIRECTED 08/02/19 03:59 EKG Documentation Completion [RC] STAT 08/02/19 05:11 Sodium Chloride 0.9% [Normal Saline] 1,000 ml IV .Bolus
[2019-08-02] MEDS ORDERED: Aluminum Hydroxide/Magnesium Hydroxide/Simethicone Susp 30 ML Cup PO ONE (01:45)
[2019-08-02] MEDS ORDERED: Ondansetron 4 MG/2 ML SDV IVPUSH ONE (01:45)
[2019-08-02] MEDS ORDERED: Aspirin 81 MG Tab.Chew PO ONE ×2 (01:45→01:48)
--- NOTE | 2019-08-02 01:55 | CR ---
INDICATION: Chest pain TECHNIQUE: Chest 1 views COMPARISON: Chest x-ray 06/29/2014 FINDINGS: Portable chest with lordotic technique. Cardiovascular and mediastinum: Heart size and vasculature are normal in caliber and appearance. Lungs and pleural spaces: Lungs are clear. No sign of infiltrate or mass. No sign of pleural effusion. No pneumothorax. Bones and soft tissues: No significant findings. IMPRESSION: No acute findings and no significant changes from the prior exam. Dictated by Alfredito Mayo MD @ Aug 02 2019 1:53AM Signed by Dr. Alfredito Mayo @ Aug 02 2019 1:54AM
[2019-08-02 01:59] LABS: BLOOD UREA NITROGEN,BUN 16 mg/dL (7.0-18.0); CARBON DIOXIDE,CO2 20.2 mmol/L (21.0-32.0); CHLORIDE,CL 89 mmol/L (98-107); GLUCOSE RANDOM 84 mg/dL (74-106); POTASSIUM,K 3.7 mmol/L (3.5-5.1); SODIUM,NA 128 mmol/L (136-148)
[2019-08-02] MEDS ORDERED: MVI, Adult with Vitamin K 10 ML, Thiamine 200 MG, Chromium/Copper/Mang/Selen/Zn 1 ML in... IV SCH ×8 (02:30→03:03)
[2019-08-02] MEDS ORDERED: Lidocaine 2% Viscous Solution 15 ML Cup PO ONE (02:32)
[2019-08-02] MEDS ORDERED: Famotidine 20 MG/2 ML SDV IVPUSH ONE (02:32)
[2019-08-02] MEDS ORDERED: Lidocaine 2% Viscous Solution 15 ML Cup ONE (02:33)
[2019-08-02] MEDS ORDERED: Famotidine 20 MG/2 ML SDV ONE (02:33)
[2019-08-02] MEDS ORDERED: Ketorolac 30 MG/ML SDV IVPUSH ONE (04:34)
[2019-08-02] MEDS ORDERED: Ketorolac 30 MG/ML SDV ONE (04:35)
[2019-08-02] MEDS ORDERED: Morphine 4 MG/ML Syringe IVPUSH ONE (05:09)
[2019-08-02] MEDS ORDERED: Sodium Chloride 0.9% 1,000 ML IV ONE (05:11)
[2019-08-02 06:28] VITALS: BP 113/62; PULSE 90
== END 2019-08-02 06:20 | disposition home or self-care (01) ==
LOC: MW.ED 01:11
DX: R07.89 Other chest pain (principal); E11.9 Type 2 diabetes mellitus without complications; E78.00 Pure hypercholesterolemia, unspecified; Z79.84 Long term (current) use of oral hypoglycemic drugs; Z79.899 Other long term (current) drug therapy
CPT/HCPCS: 36415; 71045; 80053; 80307; 82962; 83690; 83880; 84484; 85025; 85610; 96361; 96365; 96375; 99285; A9270; J1885; J2270; J2405; J3411; J7030; S0028; 93005; 99284; J3490

== ENCOUNTER 2019-08-10 14:30 | Emergency (ER) | payer BC ==
[2019-08-10] MEDS ORDERED: Aluminum Hydroxide/Magnesium Hydroxide/Simethicone Susp 30 ML Cup PO ONE (14:45)
[2019-08-10] MEDS ORDERED: Lidocaine 2% Viscous Solution 100 ML Bottle PO ONE (14:45)
[2019-08-10] MEDS ORDERED: Famotidine 20 MG/2 ML SDV IVPUSH ONE (14:45)
[2019-08-10] MEDS ORDERED: Lidocaine 2% Viscous Solution 15 ML Cup ONE (14:49)
[2019-08-10] MEDS ORDERED: Lidocaine 2% Viscous Solution 15 ML Cup PO ONE (14:54)
--- NOTE | 2019-08-10 15:08 | CR ---
Chest: Portable view of the chest was obtained. Comparison: Prior chest x-ray of 08/02/19. Heart size and mediastinum are normal. Lungs are clear with no acute parenchymal change. Bony structures are grossly intact. Impression: 1. Nothing acute is appreciated on portable chest x-ray. Diagnostic code #1 Study was dictated in MDT
[2019-08-10 15:30] LABS: BLOOD UREA NITROGEN,BUN 21 mg/dL (7.0-18.0); CARBON DIOXIDE,CO2 21.6 mmol/L (21.0-32.0); CHLORIDE,CL 93 mmol/L (98-107); GLUCOSE RANDOM 275 mg/dL (74-106); POTASSIUM,K 3.7 mmol/L (3.5-5.1); SODIUM,NA 129 mmol/L (136-148)
[2019-08-10] MEDS ORDERED: Sodium Chloride 0.9% 1,000 ML IV ONE (15:39)
--- NOTE | 2019-08-10 15:43 | CT ---
Head CT Technique: Multiple axial sections through the brain were obtained. Intravenous contrast was not utilized. Comparison: No prior intracranial imaging is available. Findings: Ventricles along with basal cisterns and sulci over the convexities appear within normal limits for the patient's age. No abnormal parenchymal densities are seen. No evidence of intracranial hemorrhage. No midline shift or mass effect is seen. Visualized paranasal sinuses and mastoid sinuses show nothing acute. No acute calvarial abnormality is appreciated. Previous craniotomy is noted. Impression: 1. Prior craniotomy. 2. No acute intracranial abnormality is appreciated. Diagnostic code #2 Study was dictated in MDT
[2019-08-10] MEDS ORDERED: LORazepam 0.5 MG Tab PO ONE (19:28)
--- NOTE | 2019-08-10 19:59 | EDM.PDOC ---
ED HPI GENERAL MEDICAL PROBLEM - General Chief Complaint: Drug or Alcohol Abuse Stated Complaint: DETOX/SOB Time Seen by Provider: 08/10/19 19:00 Source of Information: Reports: Patient History Limitations: Reports: Intoxication - History of Present Illness INITIAL COMMENTS - FREE TEXT/NARRATIVE: Addendum: patient signed out to myself at 1900 on 08/10/[address] Ernandez pending sobriety and discharge. Please see his note for history/physical Briefly, this is a 44 year old male who presents with alcohol intoxication. Pt has a number of recent stressors and his support system is in [place]. He admits to recent heavy drinking. Denies any SI/HI. Has anxiety which he has seen his pcp for in the past. Has chest tightness which is similar to his prior anxiety per patient when I spoke with him at bedside. Had workup here prior to transfer of care to myself including unremarkable EKG, CXR and troponin. Pt requesting something for his anxiety. PHYSICAL EXAMINATION: GENERALIZED APPEARANCE: well developed, well nourished in no distress. alcohol odor on breath VITAL SIGNS: Per nurse's note, reviewed by me SKIN: Warm, dry; (-) cyanosis; (-) rash. HEAD: (-) scalp swelling, (-) tenderness. EYES: (-) conjunctival pallor, (-) scleral icterus. ENMT: (-) stridor; mucous membranes moist. NECK: (-) tenderness, (-) stiffness, CHEST AND RESPIRATORY: (-) rales, (-) rhonchi, (-) wheezes; breath sounds equal bilaterally. HEART AND CARDIOVASCULAR: (-) irregularity; (-) murmur, (-) gallop. ABDOMEN AND GI: Soft; (-) tenderness, EXTREMITIES: (-) deformity, (-) edema. NEURO AND PSYCH: Alert. Cranial nerves grossly intact; strength symmetric. oriented x 3. normal speech. DIAGNOSTICS: reviewed by myself EMERGENCY DEPARTMENT COURSE AND TREATMENT: Patient's condition improved during Emergency Department evaluation. Given Ativan 0.5 mg PO for anxiety. On reevaluation, pt alert, awake at bedside, able to attend to conversation with normal speech and steady gait. Based on history, physical exam, and diagnostic evaluation, the patient appears to have symptoms consistent with low risk chest pain. The physical exam was unremarkable including normal chest and respiratory exam. Laboratory testing was performed. I do not believe the symptoms are related to acute ischemic chest pain. I also do not believe this is a vascular catastrophe such as an aortic dissection or an acute rupture of an abdominal aortic aneurysm. The patient is low risk for acute thromboembolic phenomena. The patient will be discharged to follow-up with their primary care physician in the next 24-48 hours or return here if unable to make an appointment with [facility] primary care physician. Patient was advised of our evaluation and instructed to seek medical attention immediately if symptoms change, worsen, or new symptoms develop. Patient has history of alcohol abuse and wishes to quit. Given referrals to detox centers. PLAN AND FOLLOW-UP: Patient received written and verbal instructions regarding this condition. Return to ED immediately with any new or worsening symptoms. Follow up to be arranged by patient with pcp in 1-2 days for further evaluation. Given discharge precautions. patient expressed verbal understanding. chest Pain Score (Numeric/FACES): 5 - Related Data Allergies Allergy/AdvReac Type Severity Reaction Status Date / Time No Known Allergies Allergy Verified 08/10/19 14:50 Home Meds: Home Meds metFORMIN [Glucophage XR] 500 mg PO BID 06/29/14 [History] Empagliflozin/Linagliptin [Glyxambi 10 mg-5 mg Tablet] 1 tab PO DAILY 07/04/16 [ History] Testosterone Cypionate 100 mg IM ASDIRECTED 07/04/16 [History] Fenofibrate 02/27/17 [History] LORazepam [Ativan] 1 mg PO DAILY PRN #2 tablet 08/10/19 [Rx] Past Medical History Cardiovascular History: Reports: High Cholesterol Psychiatric History: Reports: Anxiety Endocrine/Metabolic History: Reports: Diabetes, Type II - Infectious Disease History Infectious Disease History: Reports: None - Past Surgical History Musculoskeletal Surgical History: Reports: Other (See Below) Social & Family History - Family History Family Medical History: Noncontributory - Tobacco Use Smoking Status *Q: Never Smoker - Recreational Drug Use Recreational Drug Use: No ED ROS GENERAL - Review of Systems Review Of Systems: See Below (please see prior note by Dr. Ernandez) ED EXAM, GENERAL - Physical Exam Exam: See Below (see dictation) Course - Vital Signs Last Recorded V/S: Last Vital Signs Temp 98.5 F 08/10/19 14:50 Pulse 93 08/10/19 16:58 Resp 18 08/10/19 16:58 BP 114/78 08/10/19 16:58 Pulse Ox 98 08/10/19 16:58 - Orders/Labs/Meds Orders: Active Orders 24 hr Category Date Time Status Blood Glucose Check, Bedside [RC] ONETIME Care 08/10/19 14:45 Active Labs: Laboratory Tests 08/10/19 08/10/19 08/10/19 Range/Units 14:45 14:45 15:13 WBC 6.18 (4.0-11.0) K/uL RBC 4.71 (4.50-5.90) M/uL Hgb 14.0 (13.0-17.0) g/dL Hct 40.4 (38.0-50.0) % MCV 85.8 (80.0-98.0) fL MCH 29.7 (27.0-32.0) pg MCHC 34.7 (31.0-37.0) g/dL RDW Std Deviation 45.6 (28.0-62.0) fl RDW Coeff of Sage 14 (11.0-15.0) % Plt Count 138 L (150-400) K/uL MPV 9.80 (7.40-12.00) fL Neut % (Auto) 57.9 (48.0-80.0) % Lymph % (Auto) 29.1 (16.0-40.0) % [place] % (Auto) 11.3 (0.0-15.0) % Eos % (Auto) 1.5 (0.0-7.0) % Baso % (Auto) 0.2 (0.0-1.5) % Neut # (Auto) 3.6 (1.4-5.7) K/uL Lymph # (Auto) 1.8 (0.6-2.4) K/uL [place] # (Auto) 0.7 (0.0-0.8) K/uL Eos # (Auto) 0.1 (0.0-0.7) K/uL Baso # (Auto) 0.0 (0.0-0.1) K/uL Nucleated RBC % 0.0 /100WBC Nucleated RBCs # 0 K/uL Sodium 129 L (136-148) mmol/L Potassium 3.7 (3.5-5.1) mmol/L Chloride 93 L (98-107) mmol/L Carbon Dioxide 21.6 (21.0-32.0) mmol/L BUN 21 H (7.0-18.0) mg/dL Creatinine 1.7 H (0.8-1.3) mg/dL Est Cr Clr Drug Dosing 51.84 mL/min Estimated GFR (MDRD) 44.0 ml/min Glucose 275 H (74-106) mg/dL POC Glucose 253 H (60-110) mg/dL Calcium 8.4 L (8.5-10.1) mg/dL Troponin I < 0.050 (0.000-0.056) ng/mL Ethyl Alcohol 386 mg/dL Meds: Medications Discontinued Medications Generic Name Dose Route Start Last Admin Trade Name Freq PRN Reason Stop Dose Admin Al Hydroxide/Mg Hydroxide 30 ml 08/10/19 14:45 08/10/19 14:53 Mag-Al Plus PO 08/10/19 14:46 30 ml ONETIME ONE Administration Famotidine 20 mg 08/10/19 14:45 08/10/19 14:53 Pepcid IVPUSH 08/10/19 14:46 20 mg ONETIME ONE Administration Sodium Chloride 1,000 mls @ 1,000 mls/hr 08/10/19 15:39 08/10/19 15:52 Normal Saline IV 08/10/19 16:38 1,000 mls/hr .Bolus ONE Administration Lidocaine HCl 20 ml 08/10/19 14:45 08/10/19 14:55 Xylocaine 2% Viscous PO 08/10/19 14:46 Not Given ONETIME ONE Lidocaine HCl Confirm 08/10/19 14:49 08/10/19 14:55 Xylocaine 2% Viscous Administered 08/10/19 14:50 Not Given Dose 15 ml .ROUTE .STK-MED ONE Lidocaine HCl 15 ml 08/10/19 14:54 08/10/19 14:55 Xylocaine 2% Viscous PO 08/10/19 14:55 15 ml ONETIME ONE Administration Lorazepam 0.5 mg 08/10/19 19:28 08/10/19 19:33 Ativan PO 08/10/19 19:29 0.5 mg ONETIME ONE Administration Departure - Departure Time of Disposition: 20:42 Disposition: Home, Self-Care 01 Condition: Good Clinical Impression: Alcohol abuse, Anxiety - Discharge Information *PRESCRIPTION DRUG MONITORING PROGRAM REVIEWED*: Not Applicable *COPY OF PRESCRIPTION DRUG MONITORING REPORT IN PATIENT ALFONSO: Not Applicable Prescriptions: LORazepam [Ativan] 1 mg PO DAILY PRN #2 tablet PRN Reason: Anxiety Instructions: Alcohol Use Disorder, Alcohol Intoxication, [id number], Alcohol Abuse and Nutrition Referrals: [facility] [Ordering Only Provider] - 1 Day Forms: ED Department Discharge Additional Instructions: The following information is given to patients seen in the emergency department who are being discharged to home. This information is to outline your options for follow-up care. We provide all patients seen in our emergency department with a follow-up referral. The need for follow-up, as well as the timing and circumstances, are variable depending upon the specifics of your emergency department visit. If you don't have a primary care physician on staff, we will provide you with a referral. We always advise you to contact your personal physician following an emergency department visit to inform them of the circumstance of the visit and for follow-up with them and/or the need for any referrals to a consulting specialist. The emergency department will also refer you to a specialist when appropriate. This referral assures that you have the opportunity for follow-up care with a specialist. All of these measure are taken in an effort to provide you with optimal care, which includes your follow-up. Under all circumstances we always encourage you to contact your private physician who remains a resource for coordinating your care. When calling for follow-up care, please make the office aware that this follow-up is from your recent emergency room visit. If for any reason you are refused follow-up, please contact the [facility] Emergency Department at and asked to speak to the emergency department charge nurse. Sepsis Event Note - Evaluation Sepsis Screening Result: No Definite Risk - Focused Exam Vital Signs: Vital Signs Temp Pulse Resp BP Pulse Ox 08/10/19 16:58 93 18 114/78 98 08/10/19 15:54 88 18 140/100 H 96 08/10/19 14:50 98.5 F 92 20 135/80 98 Date Exam was Performed: 08/10/19 Time Exam was Performed: 20:33
[2019-08-10 20:49] VITALS: BP 121/79; PULSE 90
== END 2019-08-10 20:49 | disposition home or self-care (01) ==
LOC: MW.ED 14:30
DX: F10.129 Alcohol abuse with intoxication, unspecified (principal); Y90.8 Blood alcohol level of 240 mg/100 ml or more; E78.00 Pure hypercholesterolemia, unspecified; F41.9 Anxiety disorder, unspecified; E11.9 Type 2 diabetes mellitus without complications; Z79.84 Long term (current) use of oral hypoglycemic drugs; Z79.899 Other long term (current) drug therapy
CPT/HCPCS: 70450; 70450-26; 71045; 71045-26; 80048; 80307; 82962; 84484; 85025; 93005; 96361; 96374; 99283; 99284-25; A9270-GY; J3490; J7030

== ENCOUNTER 2019-08-12 13:03 | Emergency (ER) | payer BC, OTHER ==
[2019-08-12 13:20] VITALS: BP 139/100; PULSE 91
--- NOTE | 2019-08-12 13:22 | EDM.PDOC ---
ED HPI GENERAL MEDICAL PROBLEM - General Chief Complaint: Respiratory Problem Stated Complaint: ANXIETY Time Seen by Provider: 08/12/19 13:21 Source of Information: Reports: Patient History Limitations: Reports: No Limitations - History of Present Illness INITIAL COMMENTS - FREE TEXT/NARRATIVE: HISTORY AND PHYSICAL: History of present illness: Patient is a 44-year-old male presents to the ED With complaint of shortness of breath and anxiety. Patient has been seen in the ED twice this month and both work ups negative including CXR, EKG, and troponin. Patient was scheduled to see provided at [facility] this afternoon but due to shortness of breath and patient reporting muscle aches he screened positive for COVID. Per nurse at [facility], they did not have any more swabs available so sent him to the ED. She states he can not be seen in the clinic until he has a negative COVID swab. Patient was in the ED 2 days ago and given #2 Ativan for at home. Patient states he felt great while taking these but now that he is out he is having a lot of anxiety and shortness of breath. He does report pain in his chest which goes away when he takes the ativan. He denies fevers, chills, nausea, vomiting, cough, abdominal pain. Patient reports history of anxiety and depression, he denies suicidal or homicidal thoughts. Patient does report alcohol use and drinks 1/3 handle of vodka recently. He states his last drink was this morning and states he only drinks because this helps with his anxiety. He states he did not have any alcohol while taking the ativan because this took care of his anxiety. Patient denies history of withdrawal seizures when he stops drinking. Review of systems: As per history of present illness and below otherwise all systems reviewed and negative. Past medical history: As per history of present illness and as reviewed below otherwise noncontributory. Surgical history: As per history of present illness and as reviewed below otherwise noncontributory. Social history: No reported history of drug or alcohol abuse. Family history: As per history of present illness and as reviewed below otherwise noncontributory. Physical exam: General: Patient sitting comfortably in no acute distress and nontoxic appearing HEENT: Atraumatic, normocephalic, pupils reactive, negative for conjunctival pallor or scleral icterus, mucous membranes moist, throat clear, neck supple, nontender, trachea midline. No meningeal signs. Lungs: Clear to auscultation, breath sounds equal bilaterally, chest nontender. Heart: S1S2, regular, negative for clicks, rubs, or overt murmur. Abdomen: Soft, nondistended, nontender. Negative for masses or hepatosplenomegaly. Negative for costovertebral tenderness. No rigidity, rebound , guarding. Pelvis: Stable nontender. Genitourinary: Deferred. Rectal: Deferred. Extremities: Atraumatic, negative for cords or calf pain. Neurovascular unremarkable. Neuro: Awake, alert, oriented. Cranial nerves II through XII unremarkable. Cerebellum unremarkable. Motor and sensory unremarkable throughout. Exam nonfocal. Notes:I discussed with nurse at [facility], she states patient screened positive for COVID screening and reported shortness of breath and body aches. She states because of this he would need to have testing and a negative result before he can be seen in the clinic. She states there clinic ran out of testing and this is why they sent the patient to the ED. Diagnostics: EKG, COVID-19, refused labs Therapeutics: 0.5mg Ativan PO Prescriptions: 1mg Ativan (#2) Impression: Anxiety, shortness of breath Plan: Take 1/2 tab Ativan daily PRN severe anxiety, do not take with alcohol as discussed Follow up with primary care provider, please call for an appointment as long as COVID-19 swab is negative. Please self quarantine until you hear results of COVID-19 Return to ED as needed as discussed Definitive disposition and diagnosis as appropriate pending reevaluation and review of above. - Related Data Allergies Allergy/AdvReac Type Severity Reaction Status Date / Time No Known Allergies Allergy Verified 08/12/19 13:20 Home Meds: Home Meds metFORMIN [Glucophage XR] 500 mg PO BID 06/29/14 [History] Empagliflozin/Linagliptin [Glyxambi 10 mg-5 mg Tablet] 1 tab PO DAILY 07/04/16 [ History] Testosterone Cypionate 100 mg IM ASDIRECTED 07/04/16 [History] Fenofibrate 40 mg PO DAILY 02/27/17 [History] LORazepam [Ativan] 1 mg PO DAILY #2 tablet 08/12/19 [Rx] Past Medical History Cardiovascular History: Reports: High Cholesterol Psychiatric History: Reports: Anxiety Endocrine/Metabolic History: Reports: Diabetes, Type II - Infectious Disease History Infectious Disease History: Reports: None - Past Surgical History Musculoskeletal Surgical History: Reports: Other (See Below) Social & Family History - Family History Family Medical History: Noncontributory ED ROS GENERAL - Review of Systems Review Of Systems: Comprehensive ROS is negative, except as noted in HPI. ED EXAM, GENERAL - Physical Exam Exam: See Below (see dictation) Course - Vital Signs Last Recorded V/S: Last Vital Signs Temp 97.2 F 08/12/19 13:17 Pulse 91 08/12/19 13:17 Resp 22 H 08/12/19 13:17 BP 139/100 H 08/12/19 13:17 Pulse Ox 98 08/12/19 13:17 - Orders/Labs/Meds Orders: Active Orders 24 hr Category Date Time Status EKG Documentation Completion [RC] STAT Care 08/12/19 13:41 Active CORONAVIRUS COVID-19 PCR PHL Stat Lab 08/12/19 13:47 Ordered Meds: Medications Discontinued Medications Generic Name Dose Route Start Last Admin Trade Name Alphonso PRN Reason Stop Dose Admin Lorazepam 0.5 mg 08/12/19 13:41 08/12/19 13:45 Ativan PO 08/12/19 13:42 0.5 mg ONETIME ONE Administration Departure - Departure Time of Disposition: 14:59 Disposition: Home, Self-Care 01 Condition: Good Clinical Impression: Anxiety, Shortness of breath - Discharge Information Prescriptions: LORazepam [Ativan] 1 mg PO DAILY #2 tablet Instructions: Shortness of Breath, Adult, [id number], Living With Anxiety Referrals: Rolly Tillman MD [Primary Care Provider] - Forms: ED Department Discharge Additional Instructions: The following information is given to patients seen in the emergency department who are being discharged to home. This information is to outline your options for follow-up care. We provide all patients seen in our emergency department with a follow-up referral. The need for follow-up, as well as the timing and circumstances, are variable depending upon the specifics of your emergency department visit. If you don't have a primary care physician on staff, we will provide you with a referral. We always advise you to contact your personal physician following an emergency department visit to inform them of the circumstance of the visit and for follow-up with them and/or the need for any referrals to a consulting specialist. The emergency department will also refer you to a specialist when appropriate. This referral assures that you have the opportunity for follow-up care with a specialist. All of these measure are taken in an effort to provide you with optimal care, which includes your follow-up. Under all circumstances we always encourage you to contact your private physician who remains a resource for coordinating your care. When calling for follow-up care, please make the office aware that this follow-up is from your recent emergency room visit. If for any reason you are refused follow-up, please contact the [facility] Emergency Department at and asked to speak to the emergency department charge nurse. [facility] [address] [place] [id number] [facility] [address] [place] [id number] Take 1/2 tab Ativan daily PRN severe anxiety, do not take with alcohol as discussed Follow up with primary care provider, please call for an appointment as long as COVID-19 swab is negative. Please self quarantine until you hear results of COVID-19 Return to ED as needed as discussed Sepsis Event Note - Evaluation Sepsis Screening Result: No Definite Risk - Focused Exam Vital Signs: Vital Signs Temp Pulse Resp BP Pulse Ox 08/12/19 13:17 97.2 F 91 22 H 139/100 H 98 Date Exam was Performed: 08/12/19 Time Exam was Performed: 18:44 - My Orders Last 24 Hours: My Active Orders 08/12/19 13:41 EKG Documentation Completion [RC] STAT 08/12/19 13:47 CORONAVIRUS COVID-19 PCR PHL Stat - Assessment/Plan Last 24 Hours: My Active Orders 08/12/19 13:41 EKG Documentation Completion [RC] STAT 08/12/19 13:47 CORONAVIRUS COVID-19 PCR PHL Stat
[2019-08-12] MEDS ORDERED: LORazepam 0.5 MG Tab PO ONE (13:41)
== END 2019-08-12 15:29 | disposition home or self-care (01) ==
LOC: MW.ED 13:03
DX: F41.9 Anxiety disorder, unspecified (principal); E11.9 Type 2 diabetes mellitus without complications; Z79.84 Long term (current) use of oral hypoglycemic drugs; Z79.899 Other long term (current) drug therapy; E78.00 Pure hypercholesterolemia, unspecified; Z20.828 Contact with and (suspected) exposure to other viral communicable diseases
CPT/HCPCS: 87635; 87804; 93005; 99285; A9270; 99283; U0002

== ENCOUNTER 2019-09-14 14:44 | Emergency (ER) | payer BC ==
[2019-09-14] MEDS ORDERED: Sodium Chloride 0.9% 1,000 ML IV ONE (14:56)
[2019-09-14 15:38] LABS: BLOOD UREA NITROGEN,BUN 54 mg/dL (7.0-18.0); CHLORIDE,CL 84 mmol/L (98-107); GLUCOSE RANDOM 316 mg/dL (74-106); POTASSIUM,K 4.6 mmol/L (3.5-5.1)
[2019-09-14 15:46] LABS: SODIUM,NA 128 mmol/L (136-148)
[2019-09-14] MEDS ORDERED: Ketorolac 15 MG/ML SDV IVPUSH ONE (15:46)
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
[2019-09-14] MEDS ORDERED: NS + KCl 20mEq/L 1,000 ML IV SCH (16:15)
--- NOTE | 2019-09-14 16:24 | CR ---
Right hand: 3 views of the right hand were obtained. Comparison: No previous right hand exam is available. Joint spaces are preserved. Vascular calcification is noted within the wrist. No acute fracture, dislocation or other bony abnormality is appreciated. Impression: 1. Vascular calcification within the wrist. 2. No acute bony abnormality is appreciated on right hand exam. Diagnostic code #2 This report was dictated in MDT
--- NOTE | 2019-09-14 16:24 | CT ---
Head CT Technique: Multiple axial sections through the brain were obtained. Intravenous contrast was not utilized. Comparison: Prior head CT study of 08/10/19 is available. Findings: Ventricles along with basal cisterns and sulci over the convexities are within normal limits for the patient's age. No abnormal parenchymal densities are seen. No evidence of intracranial hemorrhage. No midline shift or mass-effect is appreciated. Previous craniotomy is noted. No acute calvarial abnormality is seen. No acute paranasal sinus findings or mastoid sinus findings are seen. Impression: 1. Previous craniotomy. 2. No acute abnormality is appreciated on noncontrast head CT exam. Diagnostic code #1 This report was dictated in MDT
[2019-09-14 18:28] VITALS: BP 120/81; PULSE 97
== END 2019-09-14 18:33 ==
LOC: MW.ED 14:44
DX: E11.10 Type 2 diabetes mellitus with ketoacidosis without coma (principal); E78.00 Pure hypercholesterolemia, unspecified; E11.9 Type 2 diabetes mellitus without complications; F41.9 Anxiety disorder, unspecified; Z79.899 Other long term (current) drug therapy; Z79.84 Long term (current) use of oral hypoglycemic drugs
CPT/HCPCS: 70450; 73130; 80053; 80307; 82009; 82803; 82962; 84484; 85025; 93005; 96361; 96365; 96366; 96375; 99291; J1885; J3480; J7030; 99285